=== PATIENT | male | born 1940 | race Caucasian/White ===

== ENCOUNTER → 2016-09-29 | Outpatient (CLI) | payer OTHER | LOC: FIMAGING 13:26 | PROVIDERS: ATTEND Orthopaedic Surgery | DX: M48.06 Spinal stenosis, lumbar region (principal); M43.16 Spondylolisthesis, lumbar region; M46.96 Unspecified inflammatory spondylopathy, lumbar region; M71.38 Other bursal cyst, other site ==

== ENCOUNTER 2017-02-04 16:16 | Emergency (ER) | payer OTHER ==
[2017-02-04 16:27] VITALS: RESP 16; TEMP 98.1
--- NOTE | 2017-02-04 16:40 | EDPHY ---
H & P Stated Complaint: turned on light and got "a hell of a shock" knocked to ground no loc no cp Time Seen by Provider: 02/04/17 16:39 HPI/ROS: CHIEF COMPLAINT: Electrocution injury HISTORY OF PRESENT ILLNESS: The patient presents to the ED after he sustained an electrocution injury. The patient reportedly was turning on a 120 vault lamp when he was shocked in his right arm. Patient reportedly was jolted falling backwards striking his right shoulder. The patient had no loss of consciousness or additional traumatic injury. The patient reports he has had some mild paresthesias in his right arm which have improved. The patient does have a history of coronary artery disease and is status post stenting several years ago. He presents to the ED today out of abundance of precaution. The patient currently denies chest pain or shortness of breath. REVIEW OF SYSTEMS: A comprehensive 10 point review of systems is otherwise negative aside from elements mentioned in the history of present illness. Source: Patient Exam Limitations: No limitations - Personal History Current Tetanus/Diphtheria Vaccine: Unsure Current Tetanus Diphtheria and Acellular Pertussis (TDAP): Unsure Tetanus Vaccine Date: 2009 - Medical/Surgical History Hx Asthma: Yes Hx Chronic Respiratory Disease: No Hx Diabetes: No Hx Cardiac Disease: Yes Hx Renal Disease: No Hx Cirrhosis: No Hx Alcoholism: No Hx HIV/AIDS: No Hx Splenectomy or Spleen Trauma: No Other PMH: Pmh: asthma, htn, prostate ca, diverticulitis, diverticular GI bleed , CAD, htn. PSH: appy, hernia repair x 2, prostatectomy, knee surg x2, heart stents, bladder surgery - Social History Smoking Status: Never smoked - Physical Exam Exam: General Appearance: Alert, no distress Eyes: Pupils equal and round no pallor or injection ENT, Mouth: Mucous membranes moist Respiratory: There are no retractions, lungs are clear to auscultation Cardiovascular: Regular rate and rhythm Gastrointestinal: Abdomen is soft and nontender, no masses, bowel sounds normal Neurological: A&O, normal motor function, normal sensory exam, normal cranial nerves Skin: Warm and dry, no rashes Musculoskeletal: Neck is supple nontender Extremities: symmetrical, full range of motion Constitutional: Initial Vital Signs Temperature (C) 36.7 C 02/04/17 16:25 Heart Rate 67 02/04/17 16:25 Respiratory Rate 16 07/09/17 16:25 Blood Pressure 163/86 H 02/04/17 16:25 O2 Sat (%) 98 02/04/17 16:25 O2 Delivery Mode Room Air Allergies/Adverse Reactions: erythromycin base Allergy (Intermediate, Verified 09/28/15 16:45) Other-Enter Comments penicillin V potassium [From Pen-Vee K] Allergy (Unknown, Verified 09/28/15 16: 45) Unknown doxycycline Allergy (Verified 01/26/16 04:56) Other-Enter Comments ENVIRONMENTAL Allergy (Intermediate, Uncoded 09/28/15 16:45) Other-Enter Comments Home Medications: Medication Instructions Recorded ALPRAZolam [Xanax 0.5 MG (*)] 0.125 mg PO HS PRN 03/05/15 Albuterol Sulfate [Albuterol 2 puffs IH BID 03/05/15 Inhaler Hfa] Ascorbic Acid [Vitamin C 500 mg 500 mg PO DAILY 03/05/15 (*)] Aspirin [Aspirin 81mg (*)] 81 mg PO HS 03/05/15 Atorvastatin Calcium [Lipitor 40 40 mg PO DAILY@03/05/15 mg (*)] Beclomethasone Qvar 80 [Qvar 80 2 puffs IH BID 03/05/15 (*)] Herbals/Supplements -Info Only 1 ea PO DAILY 03/05/15 Losartan/Hydrochlorothiazide 1 each PO DAILY@03/05/15 [Hyzaar 100-25 Tablet] Montelukast Sodium [Singulair 10 10 mg PO HS 03/05/15 mg (*)] Multivitamins [Multivitamin (*)] 1 each PO DAILY@03/05/15 [place]-3 Fatty Acids [Fish Oil 1000 1,000 mg PO DAILY 03/05/15 mg (*)] Polyethylene Glycol 3350 [Miralax 17 gm PO BID PRN 03/05/15 17 gm (*)] Psyllium Seed [Metamucil] 1 tbs PO BID PRN 03/05/15 Vardenafil HCl [Levitra] 20 mg PO DAILY PRN 03/05/15 amLODIPine BESYLATE [Norvasc 5 mg 5 mg PO DAILY@08 03/05/15 (*)] guaiFENesin [Robitussin Oral 10 ml PO DAILY PRN 03/05/15 Liquid (*)] Medical Decision Making - Diagnostics EKG Interpretation: EKG: Complete interpretation has been separately recorded in the [facility] archive. Summary impression: Sinus rhythm ED Course/Re-evaluation: The patient presents to the ED after an electrocution injury. The patient's EKG demonstrates no evidence of an arrhythmia. Examination of his shoulder does demonstrate evidence of a mild strain with no clinical evidence of a fracture dislocation. I do feel the patient can be discharged home in the absence of any additional symptoms. He is given customary aftercare instructions and return precautions. Differential Diagnosis: Differential diagnosis considered includes shoulder fracture, dislocation, arrhythmia, rhabdomyolysis, neurapraxia Departure - Departure Disposition: Home, Routine, Self-Care Clinical Impression: Injury by electrocution, Right shoulder strain Condition: Good Instructions: Musculoskeletal Pain (ED) Additional Instructions: 1. Please return to the emergency department for any chest pain, shortness of breath, arrhythmia or other concerns. Referrals: ZENAIDA LEONARDO [Other] - As per Instructions
--- NOTE | 2017-02-04 16:55 | CPEKG ---
Heart Rate: 66 RR Interval: 909 P-R Interval: 168 QRSD Interval: 96 QT Interval: 420 QTC Interval: 441 P [place]: 42 QRS [place]: 56 T Wave [place]: 81 EKG Severity - BORDERLINE ECG - EKG Impression: SINUS RHYTHM EKG Impression: BORDERLINE T ABNORMALITIES, LATERAL LEADS Electronically Signed By: Daniel Hathaway 04-Feb-2017 18:01:04
[2017-02-04 17:12] VITALS: BP 155/86; PULSE 82; O2SAT 95
== END 2017-02-04 17:14 | disposition home or self-care (01) ==
DX: S46.911A Strain of unspecified muscle, fascia and tendon at shoulder and upper arm level, right arm, initial encounter (principal); T75.4XXA Electrocution, initial encounter; J45.909 Unspecified asthma, uncomplicated; I10 Essential (primary) hypertension; I25.10 Atherosclerotic heart disease of native coronary artery without angina pectoris; Z85.46 Personal history of malignant neoplasm of prostate; Z95.5 Presence of coronary angioplasty implant and graft; Z79.82 Long term (current) use of aspirin; W01.198A Fall on same level from slipping, tripping and stumbling with subsequent striking against other object, initial encounter; Y99.8 Other external cause status; Y93.89 Activity, other specified

== ENCOUNTER 2017-11-23 18:05 | Inpatient (IN) | payer OTHER ==
--- NOTE | 2017-11-23 18:30 | CPEKG ---
Heart Rate: 67 RR Interval: 896 P-R Interval: 184 QRSD Interval: 96 QT Interval: 408 QTC Interval: 431 P Franc[place]: 49 QRS [place]: 73 T Wave [place]: 99 EKG Severity - ABNORMAL ECG - EKG Impression: SINUS RHYTHM EKG Impression: ATRIAL PREMATURE COMPLEX EKG Impression: NONSPECIFIC T ABNORMALITIES, LATERAL LEADS Electronically Signed By: Mackenzie Pinzon 23-Nov-2017 22:22:14
[2017-11-23] MEDS ORDERED: ASPIRIN 81 MG CHEWABLE TAB PO ONE (18:31)
[2017-11-23 18:46] LABS: PLATELET COUNT 273 10^3/uL (150-400)
--- NOTE | 2017-11-23 18:46 | EDPHY ---
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 He also has a history of asthma, prostate cancer (status post prostatectomy and radiation therapy), and recurrent diverticular bleeds. He presents tonight complaining of pressure at the base of his throat. He feels mildly short of breath. This has been ongoing throughout the day. He 1st noticed this sensation about 5 days ago when he was walking on a treadmill. He noted that his heart rate was fast and that his throat felt "tight". These symptoms resolved with rest. However they recurred and have beenconstant throughout the day today. He also notes extreme fatigue. He did walk on the treadmill for half an hour today with no change in his symptoms. He states that he underwent treadmill stress testing a few months ago and that this testing was reportedly normal. He was admitted to this hospital with atypical chest pain in September of 2015 and at that time had a myocardial perfusion stress test performed that showed no focal wall motion abnormalities and some inferior wall thinning versus infarct with no evidence of ischemia. REVIEW OF SYSTEMS: A ten point review of systems was performed and is negative with the exception of the items mentioned in the HPI. Past medical history: 1. Hypertension 2. Coronary artery disease status post drug-eluting stents to the OM branch of the circumflex and diagonal branch of the LAD in September of 2014 3. Prostate cancer 4. Diverticular bleeds Past surgical history: 1. Appendectomy 2. Hernia repair x2 3. Prostatectomy 4. Knee surgery x2 5 removal bladder polyp 6. Coronary artery stenting Social history: He lives with his . He is a clinical psychologist. No tobacco, alcohol, or illicit drug use. General Appearance: Alert. Vital signs reviewed. Eyes: Pupils equal and round, no conjunctival injection, no discharge. Anicteric. ENT, Mouth: Mucous membranes are moist, no oropharyngeal erythema or edema. Neck: No lymphadenopathy, supple. Respiratory: Lungs are clear to auscultation; no wheezes, rales, or rhonchi. Cardiovascular: Regular rate and rhythm; no murmur, rub, or gallop. Gastrointestinal: Abdomen is soft and nontender, no masses or organomegaly, bowel sounds normal. Skin: Warm and dry, no rashes on exposed skin, normal color. Back: Nontender to palpation over the thoracolumbar spine. No CVAT. Extremities: No lower extremity edema, no calf tenderness or swelling. Neurological: Alert and oriented. Moving all four extremities easily and equally. Psychiatric: Normal affect. - Personal History Current Tetanus/Diphtheria Vaccine: Yes Current Tetanus Diphtheria and Acellular Pertussis (TDAP): Yes Tetanus Vaccine Date: 2009 - Medical/Surgical History Hx Asthma: Yes Hx Chronic Respiratory Disease: No Hx Diabetes: No Hx Cardiac Disease: Yes Hx Renal Disease: No Hx Cirrhosis: No Hx Alcoholism: No Hx HIV/AIDS: No Hx Splenectomy or Spleen Trauma: No Other PMH: Pmh: asthma, htn, prostate ca, diverticulitis, diverticular GI bleed , CAD, htn. PSH: appy, hernia repair x 2, prostatectomy, knee surg x2, heart stents, bladder surgery - Social History Smoking Status: Never smoked Constitutional: Initial Vital Signs Temperature (C) 37 C 11/23/17 18:13 Heart Rate 76 11/23/17 18:13 Respiratory Rate 16 11/23/17 18:13 Blood Pressure 183/94 H 11/23/17 18:13 O2 Sat (%) 97 11/23/17 18:13 O2 Delivery Mode Room Air Allergies/Adverse Reactions: erythromycin base Allergy (Intermediate, Verified 11/23/17 18:11) Other-Enter Comments penicillin V potassium [From Pen-Vee K] Allergy (Unknown, Verified 11/23/17 18: 11) Unknown doxycycline Allergy (Verified 11/23/17 18:11) Other-Enter Comments ENVIRONMENTAL Allergy (Intermediate, Uncoded 11/23/17 18:11) Other-Enter Comments Home Medications: Medication Instructions Recorded ALPRAZolam [Xanax 0.5 MG (*)] 0.125 mg PO HS PRN 03/05/15 Albuterol Sulfate [Albuterol 2 puffs IH BID 03/05/15 Inhaler Hfa] Ascorbic Acid [Vitamin C 500 mg 500 mg PO DAILY 03/05/15 (*)] Aspirin [Aspirin 81mg (*)] 81 mg PO HS 03/05/15 Atorvastatin Calcium [Lipitor 40 40 mg PO DAILY@14 03/05/15 mg (*)] Beclomethasone Qvar 80 [Qvar 80] 2 puffs IH BID 03/05/15 Herbals/Supplements -Info Only 1 ea PO DAILY 03/05/15 Losartan/Hydrochlorothiazide 1 each PO DAILY@14 03/05/15 [Hyzaar 100-25 Tablet] Montelukast Sodium [Singulair 10 10 mg PO HS 03/05/15 mg (*)] Multivitamins [Multivitamin (*)] 1 each PO DAILY@12 03/05/15 [place]-3 Fatty Acids [Fish Oil 1000 1,000 mg PO DAILY 03/05/15 mg (*)] Polyethylene Glycol 3350 [Miralax 17 gm PO BID PRN 03/05/15 17 gm (*)] Psyllium Seed [Metamucil] 1 tbs PO BID PRN 03/05/15 Vardenafil HCl [Levitra] 20 mg PO DAILY PRN 03/05/15 amLODIPine BESYLATE [Norvasc 5 mg 5 mg PO DAILY@08 03/05/15 (*)] guaiFENesin [Robitussin Oral 10 ml PO DAILY PRN 03/05/15 Liquid (*)] Medical Decision Making - Diagnostics EKG Interpretation: 12 lead EKG is interpreted in Trace master View by emergency department physician. Imaging Results: Imaging Impressions Chest X-Ray 11/23/17 18:41 Impression: No acute thoracic abnormality. ED Course/Re-evaluation: Patient was given 4 baby aspirin on arrival. EKG reviewed by me. Chest x-ray reviewed. No acute pulmonary disease. Initial troponin is negative. Given this patient's risk factors and HEART score of 6, and after discussion with him, it is agreed that he will be admitted to the hospital for serial troponins and further evaluation and treatment as needed. Differential Diagnosis: Chest pain including but not limited to myocardial ischemia, angina, pulmonary embolus, chest wall pain, pleural inflammation and pulmonary infectious causes. - Data Points Laboratory Results: Laboratory Results 11/23/17 18:30 11/23/17 18:30 11/23/17 11/23/17 18:30 18:30 WBC 7.26 10^3/uL 10^3/uL (3.80-9.50) RBC 5.06 10^6/uL 10^6/uL (4.40-6.38) Hgb 16.6 g/dL g/dL (13.7-17.5) Hct 45.7 % % (40.0-51.0) MCV 90.3 fL fL (81.5-99.8) MCH 32.8 pg pg (27.9-34.1) MCHC 36.3 g/dL g/dL (32.4-36.7) RDW 13.2 % % (11.5-15.2) Plt Count 273 10^3/uL 10^3/uL (150-400) MPV 8.1 fL L fL (8.7-11.7) Neut % (Auto) 56.8 % % (39.3-74.2) Lymph % (Auto) 29.5 % % (15.0-45.0) [place] % (Auto) 9.0 % % (4.5-13.0) Eos % (Auto) 3.7 % % (0.6-7.6) Baso % (Auto) 0.4 % % (0.3-1.7) Nucleat RBC Rel Count 0.0 % % (0.0-0.2) Absolute Neuts (auto) 4.13 10^3/uL 10^3/uL (1.70-6.50) Absolute Lymphs (auto) 2.14 10^3/uL 10^3/uL (1.00-3.00) Absolute Monos (auto) 0.65 10^3/uL 10^3/uL (0.30-0.80) Absolute Eos (auto) 0.27 10^3/uL 10^3/uL (0.03-0.40) Absolute Basos (auto) 0.03 10^3/uL 10^3/uL (0.02-0.10) Absolute Nucleated RBC 0.00 10^3/uL 10^3/uL (0-0.01) Immature Gran % 0.6 % % (0.0-1.1) Immature Gran # 0.04 10^3/uL 10^3/uL (0.00-0.10) Sodium 137 mEq/L mEq/L (135-145) Potassium 3.6 mEq/L mEq/L (3.5-5.2) Chloride 97 mEq/L mEq/L (97-110) Carbon Dioxide 29 mEq/l mEq/l (22-31) Anion Gap 11 mEq/L mEq/L (8-16) BUN 19 mg/dL mg/dL (7-23) Creatinine 0.7 mg/dL mg/dL (0.7-1.3) Estimated GFR > 60 Glucose 96 mg/dL mg/dL (70-100) Calcium 9.7 mg/dL mg/dL (8.5-10.4) Troponin I < 0.012 ng/mL ng/mL (0.000-0.034) Medications Given: Discontinued Medications Aspirin (Aspirin) 324 mg PO EDNOW ONE Stop: 11/23/17 18:32 Last Admin: 11/23/17 18:34 Dose: 324 mg Departure - Departure Disposition: [facility] Inpatient Acute Clinical Impression: Chest pain Qualifiers: Chest pain type: unspecified Qualified Code(s): R07.9 - Chest pain, unspecified Condition: Good
[2017-11-23] MEDS ORDERED: ONDANSETRON 4 MG/2 ML VIAL IVP PRN (20:58)
[2017-11-23] MEDS ORDERED: ONDANSETRON DISINTEGRATING 4 MG TAB PO PRN (20:58)
[2017-11-23] MEDS ORDERED: ALPRAZolam 0.25 MG TAB PO PRN (21:45)
[2017-11-23] MEDS ORDERED: guaiFENesin 200 MG/10 ML UDL PO PRN (21:45)
[2017-11-23] MEDS ORDERED: VARDENAFIL HCL 20 MG PO PRN (21:45)
[2017-11-23] MEDS ORDERED: POLYETHYLENE GLYCOL 3350 17 GM PKT PO PRN (21:45)
[2017-11-23] MEDS ORDERED: CALCIUM CARBONATE 500 MG CHEWABLE TAB PO PRN (21:48)
--- NOTE | 2017-11-23 22:11 | GHP ---
[f rep st] HISTORY AND PHYSICAL DATE OF ADMISSION: 11/23/2017 HISTORY OF PRESENT ILLNESS: The patient is a pleasant 77-year-old gentleman with history of coronary artery disease with a couple of stents, who presents with a pain in his throat. He is an avid runne r, but he has been limited a little bit by orthopedic injuries. He took a Z-Hero and a steroid taper last week for an asthmatic upper respiratory infection. He has dialed back as exercise because of th at. He was on the treadmill today, and he had some tightness in his throat. He did not have liberty c hest pain. He did not have dyspnea. It did not radiate to his arm or jaw. He is not diaphoretic. He has noticed no decrement in his ath letic performance from a cardiorespiratory standpoint. When asked if he could possibly have reflux w ith a sensation of a pill caught in his throat, he does notice that he may have had that happen to ok m in the last week as he was completing a steroid taper. REVIEW OF SYSTEMS: Complete 10-point review of systems conducted and negative except as noted in the HPI. PAST MEDICAL HISTORY: Asthma, coronary artery disease, hypertension, erectile dysfunction, constipat ion. 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 No tobacco. No alcoh ol. FAMILY HISTORY: Son is at the bedside and healthy. PHYSICAL EXAMINATION: VITAL SIGNS: Afebrile at 37, blood pressure 183/94, now 154/92, pulse 67, stephanie athing 18 times a minute, 94% on room air. GENERAL: No acute distress. HEENT: Sclerae anicteric. Oropharynx clear. Mucous membranes are moist. NECK: Supple. No lymphadenopathy or JVD. LUNGS: Clear to auscultation bilaterally. HEART: S1, S2. ABDOMEN: Soft, nontender, nondistended. LOWER EXTREMITIES: Without edema. Calves are nontender. SKIN: Without rash. NEUROLOGIC: Nonfocal. LABORATORY DATA: CBC normal. Chem-7 normal. Troponin less than 0.012. EKG interpreted by me shows sinus at 67 with normal axis and intervals. There are diffuse flat T-waves, but there are no ST or T wave changes. This is actually unchanged from an EKG in 2016. Chest x-ray, interpreted by me, emile ws no acute cardiopulmonary disease. I have discussed the case with Dr. Mackenzie Pinzon. ASSESSMENT AND PLAN: A 77-year-old gentleman with coronary artery disease, presents with some chest pain. 1. Chest pain. This seems like pretty low risk. It seems more likely to be esophageal symptoms, bu t cannot rule out. This could be an anginal equivalent. He had apparently had an outpatient treadmi ll with Dr. Alejandro that was pretty normal a little bit of time ago. Will cycle troponins. Follow him on telemetry to rule out an atrial arrhythmia, which could also cause these symptoms and put him on a treadmill without imaging in the morning. 2. Question reflux. He took some Tums last night. Will follow and make some Tums available to him. 3. Asthma. Continue his medications. 4. Prophylaxis. Pharmacologic prophylaxis indicated if in the hospital longer than 24 hours. DISPOSITION: Observation status. /[id number]/MODL
[2017-11-23] MEDS ORDERED: ALBUTEROL 3 ML DEYVIAL IH PRN (22:56)
[2017-11-23] MEDS: MONTELUKAST SODIUM 10 MG TAB PO SCH (23:21)
[2017-11-23] MEDS: SUCRALFATE/DIPHENHYDR/MAALOX 240 ML BOTTLE PO PRN (23:57)
[2017-11-24] MEDS: ALBUTEROL IH SCH ×2 (06:22→19:29)
[2017-11-24] MEDS: MDI IH SCH ×2 (06:22→19:29)
[2017-11-24] MEDS: BECLOMETHASONE IH SCH ×2 (06:23→19:28)
[2017-11-24] MEDS: amLODIPine BESYLATE 5 MG TAB PO SCH (07:39)
[2017-11-24] MEDS ORDERED: ASCORBIC ACID 500 MG TAB PO SCH (09:00)
[2017-11-24] MEDS ORDERED: PSYLLIUM METAMUCIL 1 PKT PO PRN (09:00)
[2017-11-24] MEDS ORDERED: Herbals/Supplements -Info Only PO SCH (09:00)
[2017-11-24] MEDS ORDERED: OMEGA-3 FATTY ACIDS 1,000 MG CAP PO SCH (09:00)
[2017-11-24] MEDS ORDERED: REGADENOSON 0.4 MG/5 ML SYR IVP ONE (11:18)
[2017-11-24] MEDS ORDERED: MULTIVITAMINS 1 EACH TAB PO SCH (12:00)
--- NOTE | 2017-11-24 12:23 | CPR ---
[f rep st] NONINVASIVE CARDIAC PROCEDURE REPORT PROCEDURE: Exercise treadmill of exercise treadmill myocardial perfusion imaging study. INDICATION FOR PROCEDURE: Known history of CAD, abnormal electrocardiogram, episodes of throat tight ness. PRE: After obtaining informed consent, patient was placed on electrocardiogram. Initial EKG shows s inus rhythm, RSR prime noted in V1, incomplete right bundle branch block, T-wave inversions noted in inferior lateral leads. Initial blood pressure was 128/70. Saturation 95% on room air. Patient rep orts, since hospitalization has had a mild "throat tightness" which he reports has been on since hosp ital admission. Reports it has not worsened. He has had 2 negative troponin's since admission. He does report that this has improved with GI cocktail last night. He denies any chest pressure or jonna n. He denies any shortness of breath. STRESS: Patient was placed on exercise treadmill. Following standard Von protocol the following f indings. 1. Patient exercised for 8 minutes. 2. 9.3 METS. 3. Patient obtained a heart rate of 155 beats per minute, which was 108% of his maximum predicted he art rate. 4. Patient reporting no change in his neck tightness throughout exercise and reporting no chest pres sure with exercise or other symptoms that suggest ischemia. Patient was noted to have 1 mm of horizo ntal ST depression in inferior lateral leads at peak exercise. 5. Occasional PVCs initially, which increased with exertion. Patient was noted to have 1 ventricula r couplet. Also, with increased exercise, patient had frequent PACs with brief runs of SVT, longest noted to be 5 beats in length. He was asymptomatic. 6. SpO2 remained greater than 90% throughout testing. 7. Blood pressure response: [id number]/70, peak 164/76. 8. Test was stopped due to maximum effort. 9. Padron treadmill score of 3, placing patient at intermediate cardiac risk. RECOVERY: Patient recovered over 5 minutes with heart rate returning back to baseline. Again, no ch manjeet in his neck tightness from pre-procedure, and remained asymptomatic of chest pressure and shortn ess of breath. Electrocardiogram returned to baseline. With rest, his PVCs and PACs dissipated. IMPRESSION: A 77-year-old male with known history of coronary artery disease with previous percutane ous coronary intervention of the obtuse marginal and diagonal in 2014. Admitted to hospital with nec k and throat tightness, but no chest pressure or pain that he had similar to prior percutaneous coron julius intervention. Patient noted to have abnormal resting electrocardiogram with T-wave inversion in inferior lateral leads. Negative troponin's x2. Patient had no change in his neck tightness and no chest pressure or other symptoms suggesting ischemia at peak exercise. Electrocardiogram at peak exe rcise did show [address] depression in inferior leads lateral leads at peak exercise, henri ing it an equivocal stress test for possible ischemia. Padron treadmill score of 3. Note that, due to his abnormal underlying resting EKG, specificity of this testing is decreased. Would rely on nuclea r imaging. Patient's vital signs are stable. He is asymptomatic of any symptoms at current time. Andressa shearer was taken down to Nuclear Medicine for post-stress imaging. /[id number]/MODL
[2017-11-24] MEDS: ACETAMINOPHEN 325 MG TAB PO PRN ×2 (13:18→21:20)
--- NOTE | 2017-11-24 15:20 | ASMTCMCOM ---
CM Note CM Note Notes: Pt admitted for chest and upper sternal pain. He is s/p a treadmill stress test, results are pending. History includes CAD with stent placement, asthma, HTN, erectile dysfunction, constipation. Pt is an avid runner, he is and lives with his . His son is involved in his care. Anticipate pt will likely discharge home independently with family support when medically stable. IBARRA form signed. CM available for any further issues or concerns. Current Discharge Plan: Home independently with family support Date Signed: 11/24/2017 03:19 PM Electronically Signed By:Clair Shu RN
--- NOTE | 2017-11-24 15:34 | HOSPPROG ---
Hospitalist Progress Note Assessment/Plan: # throat tightness - similar to his previous angina - stress images today with small inferior defect - resting images tomorrow # CAD s/p PCI in 2015 - cont asa/statin # htn - cont norvasc, losartan, hctz # asthma - no exacerbation, cont inhalers Subjective: patient seen with his ; he has no additional throat tightness Objective: Vital Signs Temp Pulse Resp BP Pulse Ox 36.5 C 74 12 143/81 H 93 11/24/17 12:00 11/24/17 12:00 11/24/17 12:00 11/24/17 12:00 11/24/17 12:00 11/23/17 11/24/17 11/25/17 05:59 05:59 05:59 Intake Total 150 Output Total 700 Balance -550 chart reviewed ecg reviewed tele reviewed - Physical Exam Constitutional: no apparent distress, appears nourished Cardiovascular: regular rate and rhythym, no murmur, rub, or gallop Respiratory: no respiratory distress, no rales or rhonchi, clear to auscultation Gastrointestinal: normoactive bowel sounds, soft, non-tender abdomen, no palpable masses ICD10 Worksheet Patient Problems: Problems Problem Status Onset Coronary artery disease Acute Hypertension Acute Lower GI hemorrhage Acute Hematochezia Acute Chest pain Acute
--- NOTE | 2017-11-24 16:06 | PDMN ---
Medical Necessity Medical necessity: C/M review: est. > 2 MN LOS chris eval and TX of acute throat tightness similar to patient's previous angina, 11/24/2017 stress treadmill done, 11/24/2017 myocardial perfusion scan stress images with small inferior defect requiring planned 11/25/2017 myocardial perfusion scan resting images, ongoing cardiac monitoring, continue aspirin, statin, Norvasc, losartan , hydrochlorthiazide, inhalers, comorbid CAD S/P PCI in 2014, hypertension, asthma per 11/24/2017 Hospitalist progress note.
[2017-11-24] MEDS: ATORVASTATIN CALCIUM 40 MG TAB PO SCH (16:10)
[2017-11-24] MEDS: LOSARTAN/HCTZ 50/12.5 1 TAB PO SCH (16:10)
[2017-11-24] MEDS ORDERED: MONTELUKAST SODIUM 10 MG TAB PO SCH (21:00)
[2017-11-24] MEDS ORDERED: ASPIRIN 81 MG CHEWABLE TAB PO SCH (21:00)
[2017-11-24] MEDS: MONTELUKAST SODIUM 10 MG TAB PO SCH (21:14)
[2017-11-24] MEDS: SUCRALFATE/DIPHENHYDR/MAALOX 240 ML BOTTLE PO PRN (21:16)
[2017-11-25] MEDS: ACETAMINOPHEN 325 MG TAB PO PRN ×2 (03:35→08:57)
[2017-11-25] MEDS: SUCRALFATE/DIPHENHYDR/MAALOX 240 ML BOTTLE PO PRN (03:36)
[2017-11-25] MEDS: BECLOMETHASONE IH SCH (07:11)
[2017-11-25] MEDS: MDI IH SCH (07:12)
[2017-11-25] MEDS: ALBUTEROL IH SCH (07:12)
[2017-11-25] MEDS: amLODIPine BESYLATE 5 MG TAB PO SCH (07:15)
[2017-11-25 11:53] VITALS: BP 133/78
[2017-11-25] MEDS: ATORVASTATIN CALCIUM 40 MG TAB PO SCH (14:48)
[2017-11-25] MEDS: LOSARTAN/HCTZ 50/12.5 1 TAB PO SCH (14:48)
--- NOTE | 2017-11-25 16:02 | ASDISCHSUM ---
Discharge Information Plan Status:Home with No Needs Medically Cleared to Leave:11/25/2017 Discharge Date:11/25/2017 CM D/C Disposition:Home, Routine, Self-Care ADT D/C Disposition:Home, Routine, Self-Care Projected Discharge Date:11/25/2017 04:00 PM Transportation at D/C:Family Discharge Delay Reason: Follow-Up Date:11/25/2017 04:00 PM Discharge Slot: Final Diagnosis:Chest pain, s/p treadmill/nuc stress test, asthma, HTN, constipation Placement Information Patient Contact Information Contact Name:MITCH Relationship: Address:[address] Work Phone: [facility]:[employer] Alternate Phone: [facility]/Zip Code:[place] [address] Email: Financial Information Financial Class:Medicare Primary Plan Desc:MEDICARE OUTPATIENT Primary Plan Number:[id number] Secondary Plan Desc:MYNOR SMITH PPO Secondary Plan Number:[id number] Assessment Information [facility] CM Progress Note CM Note CM Note Notes: Pt admitted for chest and upper sternal pain. He is s/p a treadmill stress test, results are pending. History includes CAD with stent placement, asthma, HTN, erectile dysfunction, constipation. Pt is an avid runner, he is and lives with his . His son is involved in his care. Anticipate pt will likely discharge home independently with family support when medically stable. IBARRA form signed. CM available for any further issues or concerns. Current Discharge Plan: Home independently with family support Date Signed: 11/24/2017 03:19 PM Electronically Signed By:Clair Suh RN LACE ELIZABETH Length of stay for Answers: 2 days current admission Acuity / Level of Answers: No Care: Did the patient have an inpatient admission? Comorbidities - select Answers: Coronary Artery Disease all that apply Other Notes: Stents, asthma, HTN # of Emergency department Answers: 1-2 visits in the last 6 months Score: 6 Date Signed: 11/25/2017 04:01 PM Electronically Signed By:Janice Lao LCSW Case Management Discharge Plan Note Case Management Discharge Discharge Order Complete? Answers: Yes Patient to Obtain Answers: via Family Medications Transportation Arranged Answers: Family/Friends Transport will Pick (Date 11/25/2017 04:00 PM & Time) Family Notified Answers: Yes Notes: Family to transport Discharge Comments Notes: Patient has been discharged. No discharge needs Date Signed: 11/25/2017 04:00 PM Electronically Signed By:Janice Lao LCSW Intervention Information Intervention Type:*STACEY-Signed Date of Service:11/24/2017 03:14 PM Patient Type:Observation Staff Member:ABRAHAN Suh Taylor Hours: Discipline: Severity: Comment:
--- NOTE | 2017-11-25 16:03 | GDS ---
[f rep st] DISCHARGE SUMMARY ALL DIAGNOSES: 1. Throat tightness similar to previous anginal pain. 2. Coronary artery disease, status post percutaneous coronary intervention in 2015. 3. Hypertension. 4. Asthma. HOSPITAL COURSE: A 77-year-old man admitted with throat tightness, which was concerning for his old anginal pain. His troponins remain negative. His EKG was nonischemic. He had no significant events on telemetry. Nuclear stress test showed no evidence of ischemia or infarct. I gave him strict ret urn precautions if this pain seems to be reproducible with exertion. Otherwise, I do not think any m ore testing is appropriate at this point. I have given him a prescription for Protonix in case this is related to gastrointestinal issues. I recommend that he follow up with his gas generator operator, Dr. Alejandro , in 2-4 weeks. He is discharged in stable condition. I discussed all this with both him and his wi fe. BILLING: I spent more than 30 minutes on the day of discharge coordinating care. /[id number]/MODL
== END 2017-11-25 16:18 | disposition home or self-care (01) | DRG 313 ==
LOC: OBSVTOIN 20:48 → F2W 21:46
PROVIDERS: ADMIT Internal Medicine; ATTEND Internal Medicine
DX: R07.9 Chest pain, unspecified (principal); I25.10 Atherosclerotic heart disease of native coronary artery without angina pectoris; Z95.5 Presence of coronary angioplasty implant and graft; I10 Essential (primary) hypertension; J45.909 Unspecified asthma, uncomplicated; Z85.46 Personal history of malignant neoplasm of prostate
CPT/HCPCS: A9500; G0378; J2785

== ENCOUNTER → 2017-12-28 | Outpatient (CLI) | payer OTHER | LOC: BHFA 13:15 | PROVIDERS: ATTEND Internal Medicine Cardiovascular Disease | DX: I67.9 Cerebrovascular disease, unspecified (principal) ==

== ENCOUNTER → 2018-02-21 | Outpatient (CLI) | payer OTHER | LOC: BHFA 09:15 | PROVIDERS: ATTEND Internal Medicine Cardiovascular Disease | DX: R00.2 Palpitations (principal); R07.9 Chest pain, unspecified; R01.1 Cardiac murmur, unspecified ==

== ENCOUNTER → 2019-01-22 | Outpatient (CLI) | payer OTHER | LOC: FIMAGING 12:48 ==